=== PATIENT | female | born 1980 | race Caucasian/White ===

== ENCOUNTER → 2018-05-29 | Outpatient (CLI) | payer OTHER ==
--- NOTE | 2018-05-29 10:27 | MM ---
Reason for exam: screening (asymptomatic). Baseline mammogram. History: Patient had first child at age 29. Family history of breast cancer in paternal grandmother. Physical Findings: Nurse did not find any significant physical abnormalities on exam. MG 3D Screening Mammo W/Cad Bilateral CC and MLO view(s) were taken. There are scattered fibroglandular densities. There is no discrete abnormality. These results were verbally communicated with the patient and result sheet given to the patient on 05/29/18. ASSESSMENT: Negative, BI-RAD 1 RECOMMENDATION: Routine screening mammogram of both breasts in 1 year.
== END ==
LOC: RADMAMWWP 07:41
PROVIDERS: ATTEND Family Medicine
DX: Z12.31 Encounter for screening mammogram for malignant neoplasm of breast (principal)
CPT/HCPCS: 77063; 77067

== ENCOUNTER → 2020-09-08 | Outpatient (CLI) | payer OTHER ==
[2020-09-08 14:09] LABS: Basophils # (A) 0.04 X 10*3/uL (0.00-0.10); Basophils % (A) 0.9 %; Eosinophils # (A) 0.14 X 10*3/uL (0.04-0.35); HCT 39.3 % (37.2-46.3); HGB 12.6 g/dL (12.0-15.0); Lymphocytes # (A) 1.72 X 10*3/uL (0.90-5.00); Lymphocytes % (A) 37.1 %; MCH 25.4 pg (27.0-32.0); MCHC 32.1 g/dL (32.0-37.0); MCV 79.2 fL (80.0-97.0); Mean Platelet Volume 11.4 fL (9.5-12.2); Monocytes # (A) 0.49 X 10*3/uL (0.20-1.00); Monocytes % (A) 10.6 %; Neutrophils # (A) 2.23 X 10*3/uL (1.80-7.70); Neutrophils % (A) 48.2 %; Platelet Count 244 X 10*3/uL (140-440); RBC 4.96 X 10*6/uL (4.10-5.20); RDW 15.5 % (11.5-14.5); WBC 4.63 X 10*3/uL (4.50-10.00)
[2020-09-08 14:48] LABS: African American GFR (CKD) 91.4 (60.0-200.0); Albumin 4.6 g/dL (3.80-4.90); Albumin/Globulin Ratio 2.09 (1.60-3.17); Anion Gap 5.1 mmol/L (4.00-12.00); BUN/Creat Ratio 14.44 Ratio (12.00-20.00); Calcium 9.1 mg/dL (8.7-10.3); Carbon Dioxide 27.9 mmol/L (21.6-31.8); Chol/HDL Ratio 2.65; Globulin 2.2 g/dL (1.6-3.3); LDL Cholesterol,Calculated 119.2 mg/dL (0.0-131.0); Non-African American GFR(CKD) 78.9 (60.0-200.0); Potassium 4.6 mmol/L (3.5-5.5); Total Bilirubin 0.5 mg/dL (0.3-1.2); Total Protein 6.8 g/dL (6.2-8.2); VLDL Calculation 12.8 mg/dL (5.00-40.00)
[2020-09-08 15:41] LABS: Erythrocyte Sedimentation Rate 3 mm/Hr (0-20)
[2020-09-09 00:11] LABS: Gliadin AB IgA, Deaminated NEGATIVE (NEGATIVE); Gliadin AB IgA, Unit 1.4 U/mL; Gliadin AB IgG, Deaminated NEGATIVE (NEGATIVE)
[2020-09-09 12:41] LABS: HLA B27 NEGATIVE
== END | disposition home or self-care (01) ==
LOC: LABWHC1 07:50
PROVIDERS: ATTEND Family Medicine
DX: M25.552 Pain in left hip (principal); M54.5 Low back pain; M79.10 Myalgia, unspecified site; R60.0 Localized edema; R63.5 Abnormal weight gain
CPT/HCPCS: 36415; 80053; 80061; 82306; 82607; 83516; 84425; 84443; 85025; 85652; 86038; 86431; 86812

== ENCOUNTER → 2021-01-09 | Outpatient (CLI) | payer OTHER ==
--- NOTE | 2021-01-09 13:06 | XR ---
EXAMINATION TYPE: XR lumbosacral spine min 4V DATE OF EXAM: 01/09/2021 CLINICAL HISTORY: Low back pain times multiple years TECHNIQUE: Frontal, lateral, and oblique images of the lumbar spine are obtained. COMPARISON: None FINDINGS: There are 5 lumbar type vertebral bodies identified. The lumbar spine shows satisfactory alignment without evidence of acute fracture or dislocation. Vertebral body heights are within normal limits. There is lower lumbar facet arthropathy with minimal multilevel osteophytosis. The overlying soft tissue appears unremarkable. 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
== END | disposition home or self-care (01) ==
LOC: RADXRMAIN 12:38
PROVIDERS: ATTEND Family Medicine
DX: M51.86 Other intervertebral disc disorders, lumbar region (principal)
CPT/HCPCS: 72110

== ENCOUNTER → 2021-02-06 | Outpatient (CLI) | payer OTHER ==
--- NOTE | 2021-02-07 12:35 | MM ---
Reason for exam: screening (asymptomatic). Last mammogram was performed 2 years and 8 months ago. History: Patient had first child at age 29. Family history of breast cancer in paternal grandmother. Physical Findings: A clinical breast exam by your physician is recommended on an annual basis and results should be correlated with mammographic findings. MG 3D Screening Mammo W/Cad Bilateral CC and MLO view(s) were taken. Prior study comparison: May 29, 2018, bilateral MG 3d screening mammo w/cad. There are scattered fibroglandular densities. ASSESSMENT: Negative, BI-RAD 1 RECOMMENDATION: Routine screening mammogram of both breasts in 1 year.
== END | disposition home or self-care (01) ==
LOC: RADMAMWWP 07:50
PROVIDERS: ATTEND Family Medicine
DX: Z12.31 Encounter for screening mammogram for malignant neoplasm of breast (principal)
CPT/HCPCS: 77063; 77067

== ENCOUNTER → 2022-02-05 | Outpatient (CLI) | payer OTHER ==
--- NOTE | 2022-02-05 13:56 | CT ---
EXAMINATION TYPE: CT abdomen pelvis w con CT DLP: 1166.70 mGycm, Automated exposure control for dose reduction was used. DATE OF EXAM: 02/05/2022 1:14 PM COMPARISON: None. CLINICAL INDICATION:Female, 42 years old with history of R10.31 epigastric pain; Epigastric pain TECHNIQUE: Standard CT of the abdomen and pelvis following the administration of 70 cc of Isovue 30 0 IV contrast material and oral contrast. Coronal and sagittal reformats were performed. FINDINGS: LOWER CHEST: Unremarkable ABDOMEN LIVER: Unremarkable GALLBLADDER AND BILE DUCTS: Unremarkable. PANCREAS: Unremarkable. SPLEEN: Unremarkable. ADRENAL GLANDS: Unremarkable. KIDNEYS AND URETERS: No evidence of hydronephrosis or renal calculus. The ureters are unremarkable. PELVIS BLADDER: Unremarkable REPRODUCTIVE: Unremarkable. ABDOMEN & PELVIS STOMACH AND BOWEL: Postsurgical changes from gastric sleeve. Small hiatal hernia suggested. No eviden ce of bowel obstruction. Enteric contrast reaches the transverse colon. The appendix is within normal limits. PERITONEUM: No evidence of pneumoperitoneum. Trace free fluid in the pelvis, likely physiologic. VASCULATURE: No evidence of aortic aneurysm. MUSCULOSKELETAL: No acute osseous abnormalities LYMPH NODES: No gross evidence for lymphadenopathy. SOFT TISSUE/ABDOMINAL WALL: Unremarkable IMPRESSION: 1. No acute abdominal/pelvic process. 2. Post surgical changes from gastric sleeve.
== END | disposition home or self-care (01) ==
LOC: RADCTMAIN 10:34
PROVIDERS: ATTEND Family Medicine
DX: R10.13 Epigastric pain (principal); R10.84 Generalized abdominal pain; R19.4 Change in bowel habit; R60.0 Localized edema
CPT/HCPCS: 74177; Q9967 ×2

== ENCOUNTER → 2022-02-14 | Outpatient (CLI) | payer OTHER ==
--- NOTE | 2022-02-15 19:19 | MM ---
Reason for Exam: Screening (asymptomatic). Last screening mammogram was performed 12 month(s) ago. Patient History: Menarche at age 13. First Full-Term at age 29. Late child-bearing (after 30). Paternal grandmother had breast cancer. Last menstrual period: 01/25/2022 Risk Values: Shawnee 5 year model risk: 1.0%. NCI Lifetime model risk: 12.0%. Prior Study Comparison: 05/29/2018 Bilateral Screening Mammogram, [facility]. 02/06/2021 Bilateral Screening Mammogram, [facility]. Tissue Density: There are scattered fibroglandular densities. Findings: Analyzed By CAD. There is no suspicious group of microcalcifications or new suspicious mass in either breast. Overall Assessment: Negative, BI-RAD 1 Management: Screening Mammogram of both breasts in 1 year. 1. Patient should continue monthly self breast exams. 2. A clinical breast exam by your physician is recommended on an annual basis. 3. This exam should not preclude additional follow-up of suspicious palpable abnormalities. Electronically signed and approved by: Yeyo Graf M.D. Radiologist
== END | disposition home or self-care (01) ==
LOC: RADMAMWWP 07:30
PROVIDERS: ATTEND Obstetrics & Gynecology
DX: Z12.31 Encounter for screening mammogram for malignant neoplasm of breast (principal); Z80.3 Family history of malignant neoplasm of breast
CPT/HCPCS: 77063; 77067

== ENCOUNTER 2023-01-01 11:13 | Day surgery (SDC) | payer OTHER ==
[2022-12-28 11:41] VITALS: BMI 32.5
[~2023-01-01 11:13] MED LIST: LACTATED RINGERS 1,000 ML IV SCH
[2023-01-01] MEDS ORDERED: LACTATED RINGERS 1,000 ML IV ONE (11:33)
[2023-01-01 11:43] VITALS: TEMP 97.7
[2023-01-01] MEDS ORDERED: PROPOFOL 10 MG/ML 20 ML VIAL IV ONE (12:02)
[2023-01-01] MEDS ORDERED: LIDOCAINE 2% INJ 20 MG/ML (2 ML VIAL) ONE (12:02)
--- NOTE | 2023-01-01 12:05 | P.GSHP ---
History of Present Illness H&P Date: 01/01/23 Chief Complaint: Iron deficiency anemia, screening 42-year-old female here for upper and lower endoscopy. Patient told she has iron deficiency anemia. Patient with history of chronic reflux. No family history of colon cancer. No bowel complaints. Previous EGD and colonoscopy Normal per patient. Past Medical History Past Medical History: GERD/Reflux Additional Past Medical History / Comment(s): hip and back pain History of Any Multi-Drug Resistant Organisms: None Reported Past Surgical History: Bariatric Surgery Additional Past Surgical History / Comment(s): sleeve 2014 Past Anesthesia/Blood Transfusion Reactions: No Reported Reaction Additional Past Anesthesia/Blood Transfusion Reaction / Comment(s): no blood Smoking Status: Never smoker Medications and Allergies Home Medications Medication Instructions Recorded Confirmed Type Omeprazole [PriLOSEC] 40 mg PO DAILY 12/28/22 01/01/23 History Allergies Allergy/AdvReac Type Severity Reaction Status Date / Time No Known Allergies Allergy Verified 01/01/23 11:33 Surgical - Exam Vital Signs Temp Pulse Resp BP Pulse Ox 97.7 F 88 16 124/77 100 01/01/23 11:43 01/01/23 11:43 01/01/23 11:43 01/01/23 11:43 01/01/23 11:43 Physical exam: General: Well-developed, well-nourished HEENT: Normocephalic, sclerae nonicteric Abdomen: Nontender, nondistended Extremities: No edema Neuro: Alert and oriented Assessment and Plan (1) GERD (gastroesophageal reflux disease) Narrative/Plan: Will proceed with upper and lower endoscopy Current Visit: Yes Status: Acute Code(s): K21.9 - GASTRO-ESOPHAGEAL REFLUX DISEASE WITHOUT ESOPHAGITIS SNOMED Code(s): 579348018
--- NOTE | 2023-01-01 12:22 | P.PCN ---
Date of Procedure: 01/01/23 Procedure(s) Performed: PREOPERATIVE DIAGNOSIS: GERD, anemia, screening POSTOPERATIVE DIAGNOSIS: Mild gastritis, mild distal esophagitis, suspect small hiatal hernia, diverticulosis PROCEDURE: 1. EGD with biopsy 2. Colonoscopy ANESTHESIA: MAC SURGEON: David Maria M.D. SPECIMENS: Antrum, distal esophagus ENDOSCOPIC PROCEDURE: The patient was on the endoscopy table in the left decubitus position. The Olympus gastroscope was inserted into the oropharynx and passed under direct visualization to the region of the third portion of the duodenum. From that point the scope was slowly withdrawn inspecting all surfaces carefully. There were no neoplastic inflammatory or polypoid lesions throughout the duodenum. The pylorus was widely patent. The stomach was carefully inspected. There was mild gastritis present. A biopsy of the antrum took place to rule out H. pylori. Patient's previous sleeve gastrectomy was patent. No stricture was seen. The GE junction was thought to be 1 cm above the diaphragmatic hiatus. At the distal esophagus there was mild inflammatory change. This was short in length and non-circumferential biopsy of the distal esophagus took place. The remainder the esophagus appear normal. The patient was kept on the endoscopy table in the left decubitus position. The Olympus colonoscope was inserted into the anus and passed under direct visualization to the base of the cecum. The appendiceal orifice was visualized. From that point the scope was slowly withdrawn inspecting all surfaces carefully. There were no neoplastic inflammatory or polypoid lesions throughout the cecum, ascending, transverse, descending, sigmoid and rectum. There was mild left-sided diverticulosis noted. Digital rectal examination was normal. The patient was taken to the recovery room in stable condition per anesthesia guidelines. RECOMMENDATIONS: Await biopsies results. Continue anemia workup. Continue antiacids.
[2023-01-01 13:08] VITALS: BP 115/76; PULSE 67; RESP 20
== END 2023-01-01 13:21 ==
LOC: ORWHC2ENDO 11:13
PROVIDERS: ATTEND Surgery
DX: Z12.11 Encounter for screening for malignant neoplasm of colon (principal); K29.50 Unspecified chronic gastritis without bleeding; K21.00 Gastro-esophageal reflux disease with esophagitis, without bleeding; K57.30 Diverticulosis of large intestine without perforation or abscess without bleeding; D64.9 Anemia, unspecified; Z98.84 Bariatric surgery status; Z79.899 Other long term (current) drug therapy
CPT/HCPCS: 88305; 88312; 88342; 45378; 43239; J2704; J2001

== ENCOUNTER → 2024-08-24 | Outpatient (CLI) | payer OTHER ==
--- NOTE | 2024-08-24 10:17 | MM ---
Reason for Exam: Screening (asymptomatic). Last mammogram was performed 2 year(s) and 6 month(s) ago. Patient History: Menarche at age 13. First Full-Term at age 29. Late child-bearing (after 30). Paternal grandmother had breast cancer. Last menstrual period: 08/17/2024 Risk Values: Shawnee 5 year model risk: 1.1%. NCI Lifetime model risk: 11.8%. Prior Study Comparison: 05/29/2018 Bilateral Screening Mammogram, [facility]. 02/06/2021 Bilateral Screening Mammogram, [facility]. 02/14/2022 Bilateral MG 3D screening mammo w/cad, [facility]. Tissue Density: There are scattered areas of fibroglandular density. Findings: Analyzed By CAD. Right breast: There is no suspicious group of microcalcifications or new suspicious mass. Benign-appearing calcifications right breast. Left breast: There is no suspicious group of microcalcifications or new suspicious mass. Benign-appearing calcifications left breast. Overall Assessment: Benign, BI-RAD 2 Management: Screening Mammogram of both breasts in [address] [facility] will attempt to contact patient to return for supplemental views and ultrasound if indicated. Patient should continue monthly self-breast exams. A clinical breast exam by your physician is recommended on an annual basis. This exam should not preclude additional follow-up of suspicious palpable abnormalities. Note on Shawnee scores and lifetime risk: 1. A Shawnee score greater than 3% is considered moderate risk. If this is the case, consider specialist referral to assess eligibility for a risk reducing agent. 2. If overall lifetime risk for the development of breast cancer is 20% or higher, the patient may qualify for future screening with alternating mammogram and breast MRI. [facility], , 08/24/2024 10:14 AM. Electronically signed and approved by: Malcolm Quiroga DO
== END | disposition home or self-care (01) ==
LOC: RADMAMWWP 08:43
PROVIDERS: ATTEND Family Medicine
DX: Z12.31 Encounter for screening mammogram for malignant neoplasm of breast (principal); Z80.3 Family history of malignant neoplasm of breast; R92.323 Mammographic fibroglandular density, bilateral breasts
CPT/HCPCS: 77063; 77067

== ENCOUNTER → 2024-08-24 | Outpatient (CLI) | payer OTHER ==
[2024-08-24 15:12] LABS: Basophils # (A) 0.04 X 10*3/uL (0.00-0.10); Basophils % (A) 0.9 %; Eosinophils # (A) 0.21 X 10*3/uL (0.04-0.35); Eosinophils % (A) 4.5 %; HCT 37.4 % (37.2-46.3); Lymphocytes # (A) 1.41 X 10*3/uL (0.90-5.00); Lymphocytes % (A) 30.4 %; MCH 22.4 pg (27.0-32.0); MCHC 29.4 g/dL (32.0-37.0); MCV 76.2 FL (80.0-97.0); Mean Platelet Volume 11.4 FL (9.5-12.2); Monocytes # (A) 0.49 X 10*3/uL (0.20-1.00); Monocytes % (A) 10.6 %; NRBC Per 100 WBC 0 X 10*3/uL (0.00-0.01); Neutrophils # (A) 2.48 X 10*3/uL (1.80-7.70); Neutrophils % (A) 53.4 %; Platelet Count 286 X 10*3/uL (140-440); RBC 4.91 X 10*6/uL (4.10-5.20); RDW 16.5 % (11.5-14.5); WBC 4.64 X 10*3/uL (4.50-10.00)
[2024-08-24 15:56] LABS: Chol/HDL Ratio 3.19 Ratio; Glucose 93 mg/dL (70-110); LDL Cholesterol,Calculated 120.7 mg/dL (0.0-131.0); Potassium 4.5 mmol/L (3.5-5.5); Sodium 141 mmol/L (135-145)
[2024-08-24 15:57] LABS: ALT 14 U/L (8-44); AST 17 U/L (13-35); Albumin/Globulin Ratio 1.82 Ratio (1.60-3.17); Alkaline Phosphatase 64 U/L (41-126); Blood Urea Nitrogen 12.4 mg/dL (9.0-27.0); Calcium 8.9 mg/dL (8.7-10.3); Carbon Dioxide 26.3 mmol/L (21.6-31.8); Chloride 108 mmol/L (96-109); Globulin 2.2 g/dL (1.6-3.3); Total Bilirubin 0.3 mg/dL (0.3-1.2); Total Protein 6.2 g/dL (6.2-8.2)
== END | disposition home or self-care (01) ==
LOC: LABWHC1 08:17
PROVIDERS: ATTEND Family Medicine
DX: Z13.220 Encounter for screening for lipoid disorders (principal); Z13.29 Encounter for screening for other suspected endocrine disorder; E56.9 Vitamin deficiency, unspecified; E61.1 Iron deficiency; G25.81 Restless legs syndrome; K21.9 Gastro-esophageal reflux disease without esophagitis
CPT/HCPCS: 36415; 80053; 80061; 82306; 82607; 84443; 85025

== ENCOUNTER → 2024-12-10 | Outpatient (CLI) | payer OTHER ==
--- NOTE | 2024-12-10 17:05 | US ---
EXAMINATION TYPE: US abdomen limited DATE OF EXAM: 12/10/2024 COMPARISON: NONE CLINICAL INDICATION: Female, 44 years old with history of R10.84 GENERALIZED ABDOMINAL PAIN; Hx jocelin danilo sleeve, Abd pain TECHNIQUE: Grayscale and color Doppler imaging of the right upper quadrant was performed. FINDINGS: EXAM MEASUREMENTS: Liver Length: 12.0 cm Gallbladder Wall: 0.2 cm CBD: 0.8 cm Right Kidney: 9.3x5.0x5.3 cm ALTERATION HAND NOTES: exam limited by bowel gas and body habitus Pancreas: Tail obscured by overlying bowel gas Liver: Mildly increased echogenicity. No focal lesion. Gallbladder: several shadowing stones measuring up to 1.6 cm filling the gallbladder lumen. No wall thickening or surrounding fluid. Evidence for sonographic Elizabeth's sign: No CBD: dilated Right Kidney: wnl IMPRESSION: 1. At least mild hepatic steatosis. Correlation with LFTs, lipid profile, and patient risk factors. 2. Numerous gallstones measuring up to 1.6 cm filling the gallbladder lumen. 3. Dilated bile duct up to 8 mm. Correlate with alkaline phosphatase and bilirubin levels to exclude biliary obstruction. [facility], Workstation: [email or web address], 12/10/2024 5:03 PM
== END | disposition home or self-care (01) ==
LOC: RADUSWWP 07:18
PROVIDERS: ATTEND Family Medicine
DX: K76.0 Fatty (change of) liver, not elsewhere classified (principal); K80.20 Calculus of gallbladder without cholecystitis without obstruction; K83.8 Other specified diseases of biliary tract
CPT/HCPCS: 76705